=== PATIENT | male | born 1970 | race African-American/Black ===

== ENCOUNTER 2021-03-29 13:14 | Emergency (ER) | payer OTHER ==
[2021-03-29] MEDS ORDERED: Labetalol HCl 100 MG/20 ML VIAL ONE (13:44)
[2021-03-29] MEDS ORDERED: Ondansetron PF 4 MG/2 ML Vial ONE (13:44)
[2021-03-29] MEDS ORDERED: Morphine 4 MG/ML VIAL ONE (13:44)
[2021-03-29] MEDS ORDERED: Ciprofloxacin HCL/Dexameth Otic Drops 7.5 ml Bottle ONE (13:45)
[2021-03-29] MEDS ORDERED: Rocuronium Bromide 10 MG/ML (10ML VIAL) ONE (14:05)
[2021-03-29] MEDS ORDERED: Propofol 1,000 MG/100 ML VIAL IV ONE (14:09)
[2021-03-29 14:18] LABS: Hemoglobin 13.3 g/dL (13.5-17.5); Mean Corpuscular HGB CONC 31.7 g/dL (32.0-36.0); Mean Corpuscular Hemoglobin 32.6 pg (27.0-33.0); Mean Corpuscular Volume 102.9 fl (81.2-95.1); Mean Platelet Volume 10.6 fl (7.4-10.4); Platelet Count 270 10x3/uL (150-450); RBC Distribution Width 13.4 % (11.5-14.5); Red Blood Cell (RBC) Count 4.08 10x6/uL (4.32-5.72); White Blood Cell (WBC) Count 22.3 10x3/uL (3.5-10.5)
[2021-03-29 14:19] LABS: MDiff Complete? YES; Manual Diff?? YES
[2021-03-29] MEDS ORDERED: Norepinephrine 8 MG/0.9% NS 250 ML ONE (14:21)
[2021-03-29] MEDS ORDERED: EPINEPHrine 1 MG/10 ML Abboject SYRINGE ONE ×2 (14:23→14:25)
[2021-03-29] MEDS ORDERED: EPINEPHrine 4 MG in Dextrose 5% in Water 250 ML IV SCH (14:30)
[2021-03-29 14:34] LABS: ALT (SGPT) 31 U/L (8-55); AST (SGOT) 55 U/L (5-34); Albumin 4.4 g/dL (3.5-5.0); Alkaline Phosphatase 61 U/L (40-110); Anion Gap 25 mmol/L (10-20); BUN (Urea Nitrogen) 18 mg/dL (8.4-25.7); Bilirubin, Total 0.7 mg/dL (0.2-1.2); CK (CPK) 2235 U/L (30-200); Calc. Creatinine Clearance 0 mL/min (70-130); Calcium 9.5 mg/dL (7.8-10.44); Carbon Dioxide 17 mmol/L (22-29); Chloride 99 mmol/L (98-107); Globulin 3.1 g/dL (2.4-3.5); Glucose 136 mg/dL (70-105); Magnesium 1.3 mg/dL (1.6-2.6); Potassium 3.2 mmol/L (3.5-5.1); Protein, Total 7.5 g/dL (6.0-8.3); Sodium 138 mmol/L (136-145)
[2021-03-29 14:37] LABS: Band 31 % (5-11); Lymphocytes 6 % (21-51); Metamyelocyte 3 % (0-0); Monocytes 10 % (0-10); Neutrophil 49 % (42-75); Reactive Lymphocytes 1 % (0-10)
[2021-03-29 14:38] LABS: Platelet Morphology Comment Appears Adequate
[2021-03-29 14:39] LABS: Dohle Bodies SLIGHT; Toxic Granulation SLIGHT; Vacuoles SLIGHT
[2021-03-29] MEDS ORDERED: Cefepime 2 GM VIAL ONE (15:01)
[2021-03-29 15:04] LABS: CKMB 27.3 ng/mL (0-6.6)
[2021-03-29] MEDS ORDERED: fentaNYL Citrate-0.9 % NaCl/PF 100 ML IVPB SCH (15:45)
[2021-03-29 16:00] LABS: SARS-CoV-2 NAA Rapid Test Not Detected (NotDetected)
[2021-03-29] MEDS ORDERED: Acetaminophen 325 MG Suppository PR PRN (16:07)
[2021-03-29] MEDS ORDERED: Acetaminophen 325 MG/10.15 ML UDCUP PO PRN (16:07)
[2021-03-29] MEDS ORDERED: Ondansetron PF 4 MG/2 ML Vial IVP PRN (16:07)
[2021-03-29] MEDS ORDERED: Norepinephrine 8 MG/0.9% NS 250 ML IVPB PRN (16:07)
[2021-03-29] MEDS ORDERED: Piperacillin/Tazobactam 3.375 GM in Sodium Chloride 0.9% 100 ML IVPB SCH ×2 (16:15→18:00)
[2021-03-29] MEDS ORDERED: Ventilator Sedation Protocol 1 EACH FS SCH (16:15)
[2021-03-29 17:15] LABS: Bilirubin Neg (Negative); Blood, Urine 250 (Negative); Clarity Slightly Cloudy (Clear); Glucose, Urine (Dipstick) Normal (Negative); Ketone, Urine Negative (Negative); Leukocyte Negative (Negative); Nitrite Negative (Negative); Protein, Urine (Dipstick) 100 mg/dl (Neg-Trace); Specific Gravity, Urine 1.015 (1.002-1.036); Urobilinogen Normal mg/dL (Less than 2)
[2021-03-29 17:39] LABS: RBC/HPF 0-3 HPF (0-3)
[2021-03-29 17:40] LABS: Bacteria/HPF 1+ HPF (None Seen); Mucous/LPF Rare LPF (<2+); Squamous Epithelial 0-3 HPF (0-3)
[2021-03-29 17:44] LABS: Actual Bicarbonate (HCO3v) 16 mEq/L (22-28); Calcium, Ionized (venous) 1.14 mmol/L (1.16-1.32); Chloride (VBG) 103 mmol/L (98-106); Hemoglobin (Hb) 10.9 g/dL (13.1-17.2); Puncture Site Other Site; Sodium 144.7 mmol/L (133-146); Temperature 36.5 C; pH (venous) 6.98 (7.32-7.43)
[2021-03-29] MEDS ORDERED: Vancomycin HCl 1.5 GM in Sodium Chloride 0.9% 250 ML 300 ML IVPB SCH (21:00)
[2021-03-29] MEDS ORDERED: Vancomycin HCl 1.25 GM in Sodium Chloride 0.9% 250 ML 250 ML IVPB SCH (21:00)
[2021-03-29] MEDS ORDERED: Famotidine/PF 20 mg/2ml Vial SLOW IVP SCH (21:00)
== END 2021-03-29 16:11 | disposition expired ==
LOC: CSHERS 13:14
DX: I46.9 Cardiac arrest, cause unspecified (principal); J18.9 Pneumonia, unspecified organism; A41.9 Sepsis, unspecified organism; R65.21 Severe sepsis with septic shock; Z20.822 Contact with and (suspected) exposure to COVID-19; E78.5 Hyperlipidemia, unspecified; E78.00 Pure hypercholesterolemia, unspecified; I10 Essential (primary) hypertension
CPT/HCPCS: 0240U; 31500; 36415; 36556; 51702; 70450; 71045; 71275; 74174; 80053; 81003; 81015; 82550; 82553; 82805; 83605; 83735; 84443; 84484; 85025; 92950; 93005; 94002; 94760; 96365; 96366; 96368; 96375; 96376; 99292; J0171; J0692; J2270; J2405; J2704; J3370; J7070